=== PATIENT | female | born 1990 | race Caucasian/White ===

== ENCOUNTER → 2018-05-23 08:56 | Outpatient (CLI) | payer BC, SELFPAY ==
--- NOTE | 2018-05-23 08:58 | US_ITS ---
US transvaginal HISTORY: Evaluate IUD placement, pelvic pain ITS.REASON: US T/V- IUD Placement ORDERING PHYSICIAN: Michael Valentine MD FINDINGS: The uterus is 8 x 3 x 4.9 cm. IUD is present within the endometrial canal. Endometrial thickness is 8 mm. No uterine mass. The left ovary is 3.4 x 2.6 cm and contains multiple small follicles as well as a hypoechoic 12 x 9 mm cyst with some internal echoes and their present a small hemorrhagic cyst. The right ovary is 4 x 2 cm containing multiple small follicles. There is a small amount of cul-de-sac fluid. IMPRESSION: 1. IUD is in place. 2. Bilateral ovarian follicles with probable small 12 mm complex/hemorrhagic cyst of the left ovary. 3. Small amount of cul-de-sac fluid
== END ==
PROVIDERS: PCP Internal Medicine Adolescent Medicine; Visit Provider Nurse Practitioner Obstetrics & Gynecology
DX: Z97.5 Presence of (intrauterine) contraceptive device (principal)
CPT/HCPCS: 76830

== ENCOUNTER → 2018-08-28 09:49 | Outpatient (CLI) | payer BC, SELFPAY ==
[2018-08-28 13:59] LABS: Alanine Aminotransferase 23 U/L (12-78); Albumin Level 3.9 gm/dL (3.4-5.0); Albumin/Globulin Ratio 1.2 (1.1-1.8); Alkaline Phosphatase 83 U/L (46-116); Anion Gap 12.2 mEq/L (5-15); Aspartate Amino Transferase 9 U/L (15-37); Bilirubin,Total 0.3 mg/dL (0.2-1.0); Blood Urea Nitrogen 16 mg/dL (7-18); Calcium 9.5 mg/dL (8.5-10.1); Carbon Dioxide 31 mmol/L (21.0-32.0); Chloride 104 mmol/L (98-107); Chol/HDL Ratio 2.6 (1-3.5); Cholesterol 170 mg/dL (140-200); Creatinine,Serum 0.75 mg/dL (0.55-1.02); Estimated Glomerular Filt Rate 93 ml/min (>60); GFR (African American) 113 ML/MIN (>60); Globulin 3.2 gm/dl (1.3-3.2); Glucose 102 mg/dL (74-106); HDL Cholesterol 65 mg/dL (29-89); LDL Cholesterol 89 mg/dL (0-130); Potassium 4.2 mmoL/L (3.5-5.1); Sodium 143 mmol/L (136-145); Total Protein,Serum 7.1 gm/dL (6.4-8.2); Triglycerides 79 mg/dL (30-200); VLDL Cholesterol 16 mg/dL (0-40)
== END ==
PROVIDERS: Visit Provider Nurse Practitioner Family
DX: Z00.00 Encounter for general adult medical examination without abnormal findings (principal); G43.719 Chronic migraine without aura, intractable, without status migrainosus
CPT/HCPCS: 36415; 80053; 80061

== ENCOUNTER → 2018-09-03 10:33 | Outpatient (CLI) | payer BC, SELFPAY ==
[2018-09-03 10:47] LABS: Urine Pregnancy, HCG Qual. Negative (Negative)
== END ==
PROVIDERS: Visit Provider Surgery
DX: R10.9 Unspecified abdominal pain (principal)
CPT/HCPCS: 81025

== ENCOUNTER → 2020-06-08 16:33 | Outpatient (CLI) | payer BC, SELFPAY ==
[2020-06-08 19:14] LABS: Chloride 102 mmol/L (98-107); Potassium 4.1 mmoL/L (3.5-5.1); Sodium 138 mmol/L (136-145)
[2020-06-08 19:16] LABS: Blood Urea Nitrogen 13 mg/dl (7-17); Estimated Glomerular Filt Rate 86 ml/min (>60); GFR (African American) 104 ML/MIN (>60)
[2020-06-08 19:17] LABS: Alanine Aminotransferase 15 U/L (12-78); Albumin Level 4.4 g/dl (3.5-5.0); Albumin/Globulin Ratio 1.8 (1.1-1.8); Alkaline Phosphatase 56 U/L (38-126); Anion Gap 11.1 mEq/L (5-15); Aspartate Amino Transferase 20 U/L (14-36); Bilirubin,Total 0.4 mg/dl (0.2-1.3); Carbon Dioxide 29 mmol/L (22.0-30.0); Chol/HDL Ratio 3.1 (1-3.5); Cholesterol 179 mg/dl (140-200); Globulin 2.5 g/dL (1.3-3.2); Glucose 121 mg/dl (74-100); HDL Cholesterol 58 mg/dl (40-60); Total Protein,Serum 6.9 g/dl (6.3-8.2); Triglycerides 228 mg/dl (30-150); VLDL Cholesterol 46 mg/dL (0-40)
[2020-06-08 19:28] LABS: Direct LDL Cholesterol 91.34 mg/dL (100-129)
== END ==
PROVIDERS: Visit Provider Internal Medicine Adolescent Medicine
DX: Z00.00 Encounter for general adult medical examination without abnormal findings (principal)
CPT/HCPCS: 36415; 80053; 80061

== ENCOUNTER → 2020-08-18 11:49 | Outpatient (CLI) | payer BC, SELFPAY ==
--- NOTE | 2020-08-18 11:56 | XR_ITS ---
PROCEDURE: XR CHEST PORTABLE CLINICAL HISTORY: COVID OUT PATIENT Cough COMPARISON: No exams were available for comparison FINDINGS: The cardiomediastinal silhouette and pulmonary vascularity are within normal limits. The lungs are clear without infiltrates, suspicious nodules, or pleural effusions. No acute bony abnormalities. IMPRESSION: No acute findings. Dictated by: Jim Fregoso MD 08/18/2020 13:52 Jim Fregoso MD in [place] 08/18/2020 13:52
[2020-08-18 13:12] LABS: Chloride 99 mmol/L (98-107)
[2020-08-18 13:13] LABS: Potassium 3.3 mmoL/L (3.5-5.1); Sodium 139 mmol/L (136-145)
[2020-08-18 13:15] LABS: Alanine Aminotransferase 20 U/L (12-78); Alkaline Phosphatase 64 U/L (38-126); Aspartate Amino Transferase 27 U/L (14-36); Bilirubin,Total 0.4 mg/dl (0.2-1.3); Blood Urea Nitrogen 11 mg/dl (7-17); Carbon Dioxide 33 mmol/L (22.0-30.0); Estimated Glomerular Filt Rate 100 ml/min (>60); GFR (African American) 121 ML/MIN (>60)
[2020-08-18 13:16] LABS: Albumin Level 4.6 g/dl (3.5-5.0); Albumin/Globulin Ratio 1.5 (1.1-1.8); Basophils % 0.6 % (0.1-2.0); Calcium 10.2 mg/dl (8.4-10.2); Eosinophils # 0.1 K/mm3 (0.0-0.4); Globulin 3.1 g/dL (1.3-3.2); Glucose 83 mg/dl (74-100); Hematocrit 39.9 % (37.0-47.0); Hemoglobin 12.8 g/dL (12.2-16.2); Lymphocytes # 2.3 K/mm3 (0.7-4.5); Lymphocytes % 34.2 % (10-50); Mean Corpuscular Hemoglobin 28.8 pg (27.0-31.2); Mean Platelet Volume 7.8 fl (7.4-10.4); Monocytes # 0.3 K/mm3 (0.1-1.0); Monocytes % 4.5 % (1.7-9.3); Neutrophils % 59.7 % (37.0-80.0); Platelet Count 317 K/mm3 (142-424); Red Blood Count 4.43 M/mm3 (4.20-5.40); Red Cell Distribution Width 11.8 % (11.5-17.5); Total Protein,Serum 7.7 g/dl (6.3-8.2); White Blood Count 6.7 K/mm3 (4.8-10.8)
[2020-08-18 13:21] LABS: Anion Gap 10.3 mEq/L (5-15)
[2020-08-19 15:41] LABS: Covid-19 Nasal PCR Sendout Lex Not Detected
== END ==
PROVIDERS: PCP Internal Medicine Adolescent Medicine; Visit Provider Internal Medicine Adolescent Medicine
DX: Z03.818 Encounter for observation for suspected exposure to other biological agents ruled out (principal); J18.0 Bronchopneumonia, unspecified organism
CPT/HCPCS: 36415; 71045; 80053; 85025; U0004

== ENCOUNTER → 2021-03-04 16:18 | Outpatient (CLI) | payer BC, SELFPAY ==
[2021-03-04 16:47] LABS: Basophils % 0.4 % (0.1-2.0); Eosinophils # 0.1 K/mm3 (0.0-0.4); Eosinophils % 1.6 % (0.1-12.0); Hematocrit 37.9 % (37.0-47.0); Hemoglobin 12.7 g/dL (12.2-16.2); Lymphocytes # 2.4 K/mm3 (0.7-4.5); Mean Corpuscular HGB Conc 33.4 g/dL (31.8-35.4); Mean Corpuscular Hemoglobin 29.1 pg (27.0-31.2); Mean Corpuscular Volume 86.9 fl (81-99); Mean Platelet Volume 7.4 fl (7.4-10.4); Monocytes # 0.3 K/mm3 (0.1-1.0); Monocytes % 4.6 % (1.7-9.3); Neutrophils % 58.4 % (37.0-80.0); Platelet Count 355 K/mm3 (142-424); Red Blood Count 4.36 M/mm3 (4.20-5.40); Red Cell Distribution Width 12.2 % (11.5-17.5); White Blood Count 6.9 K/mm3 (4.8-10.8)
[2021-03-04 17:21] LABS: Erythrocyte Sedimentation Rate 16 mm/hr (0-20)
[2021-03-04 18:31] LABS: Alanine Aminotransferase 26 U/L (12-78); Albumin Level 4.6 g/dl (3.5-5.0); Albumin/Globulin Ratio 1.8 (1.1-1.8); Alkaline Phosphatase 68 U/L (38-126); Anion Gap 11.8 mEq/L (5-15); Aspartate Amino Transferase 25 U/L (14-36); Bilirubin,Total 0.5 mg/dl (0.2-1.3); Blood Urea Nitrogen 11 mg/dl (7-17); Calcium 9.5 mg/dl (8.4-10.2); Carbon Dioxide 29 mmol/L (22.0-30.0); Chloride 101 mmol/L (98-107); Estimated Glomerular Filt Rate 100 ml/min (>60); GFR (African American) 121 ML/MIN (>60); Globulin 2.5 g/dL (1.3-3.2); Glucose 90 mg/dl (74-100); Potassium 3.8 mmoL/L (3.5-5.1); Sodium 138 mmol/L (136-145); Total Protein,Serum 7.1 g/dl (6.3-8.2)
== END ==
PROVIDERS: Visit Provider Internal Medicine Adolescent Medicine
DX: G43.719 Chronic migraine without aura, intractable, without status migrainosus (principal); H54.62 Unqualified visual loss, left eye, normal vision right eye
CPT/HCPCS: 36415; 80053; 85025; 85651

== ENCOUNTER → 2021-03-05 10:39 | Outpatient (CLI) | payer BC, SELFPAY ==
--- NOTE | 2021-03-05 10:51 | MR_ITS ---
PROCEDURE INFORMATION: Exam: MR Head Without Contrast Exam date and time: 03/05/2021 10:51 AM Age: 30 years old Clinical indication: Pain; Aura effect not specified; Patient HX: PT has HX of migraine headaches that are getting worse TECHNIQUE: Imaging protocol: MR of the head without contrast. COMPARISON: No relevant prior studies available. FINDINGS: Brain: Normal. No acute infarct. No hemorrhage. No significant white matter disease. No edema. Cerebral ventricles: Normal. No ventriculomegaly. Bones/joints: Unremarkable. Paranasal sinuses: Normal as visualized. No acute sinusitis. Mastoid air cells: Normal as visualized. No mastoid effusion. Orbital cavity: Unremarkable. Soft tissues: Unremarkable. IMPRESSION: No acute findings.
== END ==
LOC: RAD 10:39
PROVIDERS: PCP Internal Medicine Adolescent Medicine; Visit Provider Internal Medicine Adolescent Medicine
DX: G43.719 Chronic migraine without aura, intractable, without status migrainosus (principal); H54.62 Unqualified visual loss, left eye, normal vision right eye
CPT/HCPCS: 70551

== ENCOUNTER → 2021-09-15 15:41 | Outpatient (CLI) | payer BC, SELFPAY | PROVIDERS: PCP Internal Medicine Adolescent Medicine; Visit Provider Nurse Practitioner | DX: U07.1 COVID-19 (principal) | CPT/HCPCS: C9803; U0003; U0005 ==

== ENCOUNTER 2024-05-15 14:19 | Outpatient (CLI) | payer BC, SELFPAY ==
--- NOTE | 2024-05-15 14:23 | XR_ITS ---
FINAL REPORT CLINICAL HISTORY: BONE CYST OF FOOT FINDINGS: LEFT FOOT Three views of the left foot demonstrate no acute fracture or dislocation. The visualized joint spaces are normally aligned. There are mild degenerative changes. Small plantar calcaneal spurs noted. The soft tissues are unremarkable. IMPRESSION: No acute bony abnormality. Reviewed, Interpreted and Dictated by Lorenzo Ortega III, MD Transcribed by Kelly Montes Authenticated and [facility]
== END 2024-05-15 23:59 | disposition home or self-care (01) ==
LOC: RAD 14:20
PROVIDERS: PCP Internal Medicine Adolescent Medicine; Visit Provider Internal Medicine Adolescent Medicine
DX: M85.672 Other cyst of bone, left ankle and foot (principal)
CPT/HCPCS: 73630

== ENCOUNTER 2024-07-02 08:13 | Emergency (ER) | payer BC, SELFPAY ==
[2024-07-02] VITALS (10 sets, daily range): BP systolic 124–158; BP diastolic 76–116; PULSE 78–104; RESP 13–18; TEMP 36.8; O2SAT 97–100; BMI 29.2
--- NOTE | 2024-07-02 08:19 | XR_ITS ---
FINAL REPORT CLINICAL HISTORY: R hand injury, punched wall FINDINGS: Right hand Three views were obtained. There is a mildly displaced and angulated boxer's fracture of the 5th metacarpal. The joint spaces appear normal. No soft tissue abnormality is identified. IMPRESSION: Fracture as above. Reviewed, Interpreted and Dictated by Karime Long MD Transcribed by Cathie Correia Authenticated and [facility]
--- NOTE | 2024-07-02 08:20 | ED_ITS ---
Discharge Plan Disposition Patient Disposition: Home, Self-Care Prescriptions Prescriptions: New oxycodone 5 mg tablet 5 mg PO Q6H PRN (Reason: pain) Qty: 12 0RF No Action levonorgestrel 1 EACH intrauterine device 1 each IY ONCE Referrals Follow up/Referrals: Max Chew DO [Staff Physician] - 07/03/24 10:45 am Chris Polanco MD [Primary Care Provider] - See instructions Activity Restrictions/Add. Instructions Additional Instructions/Restrictions: Take Tylenol 1000 mg every 6 hours and ibuprofen 400 mg every 6 hours for pain. Take oxycodone as needed for breakthrough pain. Do not get splint wet. Please return emerged part with any new, concerning, worsening symptoms. Follow-up with orthopedic surgery as above. Clinical Impressions Clinical Impression: Boxer's fracture Qualifiers: Encounter type: initial encounter Fracture type: closed Qualified Code(s): S62.339A - Displaced fracture of neck of unspecified metacarpal bone, initial encounter for closed fracture Instructions Patient Instructions: DI for Boxer's Fracture, DI for Moderate Sedation Print Language Print Language: [place]arag[place] Discharge ED Provider: Andrews Ramsey General Adult HPI General Chief complaint: Extremity Injury, Upper Stated complaint: AO-pain and swelling R hand Time Seen by Provider: 07/02/24 08:16 Mode of Arrival: Ambulatory Source of Information: Patient Limitations: No Limitations History of Present Illness HPI narrative: This is an otherwise healthy 33-year-old female who presents with right hand injury. States that she got frustrated at work and punched the wall. Reports pain, tenderness, and swelling over the right fifth MCP. No other injuries. No medications taken prior to arrival. Related Data Home Medications ?Medication ?Instructions ?Recorded ?Confirmed levonorgestrel 21 mcg/24 hr (up to 1 each IY ONCE control 02/15/18 06/23/24 8 years) 52 mg intrauterine device Previous Rx's ?Medication ?Instructions ?Recorded oxycodone 5 mg tablet 5 mg PO Q6H PRN pain #12 tabs 07/02/24 Allergies Allergy/AdvReac Type Severity Reaction Status Date / Time No Known Allergies Allergy Verified 06/23/24 09:12 [facility] Disclaimer: The information contained in this section may have been updated after the patient was seen, as this information can be updated by other users. Medical History No significant past medical history Surgical History Hx of tonsillectomy Family History Other Cancer Social History Smoking Status: Never smoker alcohol intake: current alcohol intake frequency: holidays/special occasions only substance use type: denies use current occupational status: employed Travel in the last 8 weeks: None housing: house current occupation: [employer] current occupational exposures/hazards: No caffeine: No ROS Obtained: Yes All systems reviewed & no additional complaints except as documented Physical Exam General General appearance: alert and in no apparent distress Eye Eye exam: Present normal appearance, PERRL and EOMI Respiratory Respiratory exam: Present normal lung sounds bilaterally; Absent respiratory distress Cardiovascular Cardiovascular exam: Present regular rate and normal rhythm Abdominal Exam Abdominal exam: Present soft and distention; Absent tenderness, guarding or rebound Expanded Upper Extremity Exam Right: Hand exam: Present other (Tenderness and swelling of her fifth MCP. Neurovascularly intact distally.) Neurological Exam Neurological exam: Present alert and oriented X3 Skin Skin exam: Present warm and dry Medical Decision Making Medical Records Medical records reviewed: Yes I reviewed the patient's medical records. Screening: Per USPSTF and CDC recommendations, given the prevalence of disease in our region, it is our hospital?s policy to screen for HIV and viral Hepatitis for all patients aged 18 and over and those with ongoing risk factors. Shawn Inquiry Pt receiving controlled substance: No Vital Signs: 07/02/24 08:20 07/02/24 08:53 07/02/24 09:04 Temperature 98.2 F Temperature Source Oral Pulse Rate Pulse Rate [Left Brachial] 100 H Respiratory Rate 18 16 Blood Pressure 143/98 H 158/116 H Blood Pressure [Left Arm] 124/79 Blood Pressure Mean 130 Blood Pressure Mean [Left Arm] 94 Blood Pressure Source Blood Pressure Source [Left Arm] Automatic Cuff Blood Pressure Position Blood Pressure Position [Left Arm] Sitting 02 Sat by Pulse Oximetry 100 Oxygen Delivery Method Room Air 07/02/24 09:05 07/02/24 09:09 07/02/24 09:14 Temperature Temperature Source Pulse Rate 104 H Pulse Rate [Left Brachial] 95 H 95 H Respiratory Rate 16 13 16 Blood Pressure 154/99 H Blood Pressure [Left Arm] 156/116 H 154/99 H Blood Pressure Mean Blood Pressure Mean [Left Arm] 129 117 Blood Pressure Source Blood Pressure Source [Left Arm] Automatic Cuff Automatic Cuff Blood Pressure Position Blood Pressure Position [Left Arm] Supine Supine 02 Sat by Pulse Oximetry 100 99 98 Oxygen Delivery Method Room Air Room Air 07/02/24 09:15 07/02/24 09:15 07/02/24 09:20 Temperature Temperature Source Pulse Rate 84 86 87 Pulse Rate [Left Brachial] Respiratory Rate 16 14 14 Blood Pressure 151/94 H 151/94 H 140/91 H Blood Pressure [Left Arm] Blood Pressure Mean Blood Pressure Mean [Left Arm] Blood Pressure Source Automatic Cuff Blood Pressure Source [Left Arm] Blood Pressure Position Supine Blood Pressure Position [Left Arm] 02 Sat by Pulse Oximetry 97 99 100 Oxygen Delivery Method Room Air 07/02/24 09:25 Temperature Temperature Source Pulse Rate 99 H Pulse Rate [Left Brachial] Respiratory Rate 16 Blood Pressure 149/96 H Blood Pressure [Left Arm] Blood Pressure Mean Blood Pressure Mean [Left Arm] Blood Pressure Source Blood Pressure Source [Left Arm] Blood Pressure Position Blood Pressure Position [Left Arm] 02 Sat by Pulse Oximetry 99 Oxygen Delivery Method Orders (Tests/Meds): ED MEDICATIONS Generic Name Dose Route Start Last Admin Trade Name Freq PRN Reason Stop Dose Admin Oxycodone HCl 5 mg 07/02/24 08:19 07/02/24 08:24 Oxycodone 5mg Immediate Release Tablet PO 08/01/24 08:18 5 mg Q4HP PRN Administration Severe Pain (7-10) Discontinued Medications Generic Name Dose Route Start Last Admin Trade Name Freq PRN Reason Stop Dose Admin Acetaminophen 1,000 mg 07/02/24 08:19 07/02/24 08:24 Acetaminophen 500mg Tab PO 07/02/24 08:20 1,000 mg ONCE ONE Administration Ibuprofen 400 mg 07/02/24 08:19 07/02/24 08:25 Ibuprofen 400 Mg Tablet PO 07/02/24 08:20 400 mg ONCE ONE Administration Ketamine HCl 25 mg 07/02/24 08:43 07/02/24 09:02 Ketamine 50mg/1ml Syringe IV 07/02/24 08:44 25 mg ONCE ONE Administration Ondansetron HCl 4 mg 07/02/24 09:05 07/02/24 09:06 Ondansetron 4mg/2ml Vial IV 07/02/24 09:06 4 mg ONCE ONE Administration ORDERS Category Date Time Status Hand XR right minimum 3 views [XR hand RT min 3V] Stat Exams 07/02/24 08:19 Taken XR hand RT 2V Stat Exams 07/02/24 09:02 Taken Medical Decision Narrative: In summary, this otherwise healthy 33-year-old female presents to the emergency department today with right hand injury. On initial evaluation patient is afebrile, hemodynamically stable, nontoxic-appearing. Differential diagnosis includes but is not limited to boxer's fracture, dislocation, soft tissue injury. Based on these concerns, I ordered right hand x-ray. Patient received oxycodone, Tylenol, ibuprofen for treatment. XR personally interpreted demonstrates boxer's fracture with volar angulation. Patient was administered pain dose ketamine and fracture was reduced by me at bedside. Ulnar gutter splint placed. Patient given follow-up with orthopedic surgery tomorrow at 10:45 AM. On reassessment in stable condition with improvement in symptoms. Appropriate for discharge with outpatient management. Prescribed oxycodone for breakthrough pain. Instructed on treatment with Tylenol/ibuprofen otherwise. Return pre cautions given.. Procedures Orthopedic Fracture Reduction Fracture #1: Time Out Performed: Yes Side: right Fracture Reduction Location: metacarpal Analgesia: other (Pain dose ketamine) Technique: direct manipulation Post Reduction X-rays Demonstrate: anatomical reduction Post-reduction neuro exam: no change Post-reduction vascular exam: no change Splint Applied: Yes Patient Tolerated Procedure: well Orthopedic Splinting/Casting Injury #1: Side: right Upper Extremity Injury Location: hand Upper Extremity Immobilizer: ulnar gutter Post Cast/Splinting Neuro Status: no change Post Cast/Splinting Vasc Status: no change Critical Care Critical Care Time Critical Care Time: No
[2024-07-02] MEDS: ACETAMINOPHEN 500MG TAB 1000 MG PO (08:24)
[2024-07-02] MEDS: OXYCODONE 5MG IMMEDIATE RELEASE TABLET 5 MG PO (08:24)
[2024-07-02] MEDS: IBUPROFEN 400 MG TABLET PO (08:25)
[2024-07-02] MEDS: KETAMINE 50MG/1ML SYRINGE 25 MG IV (09:02)
--- NOTE | 2024-07-02 09:02 | XR_ITS ---
FINAL REPORT CLINICAL HISTORY: post-reduction COMPARISON: 07/02/2024 FINDINGS: Right hand Two views were obtained. There is minimal improvement in the angulation of the boxer's fracture seen on the prior exam. No new abnormality identified. IMPRESSION: Minimal improvement in the angulation of the boxer's fracture. Reviewed, Interpreted and Dictated by Karime Long MD Transcribed by Cathie Correia Authenticated and [facility]
[2024-07-02] MEDS: ONDANSETRON 4MG/2ML VIAL 4 MG IV (09:06)
== END 2024-07-02 09:57 | disposition home or self-care (01) ==
PROVIDERS: Emergency Provider Student in an Organized Health Care Education/Training Program; PCP Internal Medicine Adolescent Medicine
DX: S62.326A Displaced fracture of shaft of fifth metacarpal bone, right hand, initial encounter for closed fracture (principal); M79.641 Pain in right hand; W22.8XXA Striking against or struck by other objects, initial encounter
CPT/HCPCS: 29125; 73120; 73130; 96374; 96375; 99284; J2405

== ENCOUNTER 2024-07-08 15:23 | Outpatient (CLI) | payer BC, SELFPAY ==
--- NOTE | 2024-07-08 15:24 | MR_ITS ---
FINAL REPORT CLINICAL HISTORY: Left Dorsal Lateral Foot Soft Tissue Mass cyst on lateral aspect of ankle 16 ml COMPARISON: None FINDINGS: MRI ANKLE WITH AND WITHOUT CONTRAST: Multiplanar MR imaging of the left ankle was performed with and without contrast. The bony structures are intact without evidence of fracture, bone bruise or marrow edema. No osteochondral lesion is identified. A marker was placed over the region of interest where a mass is present. The area correlates to a small ossific protuberance from the anterolateral aspect of the calcaneus, best seen on image #22 of series 4, and image #36 of series 7. There is no separate soft tissue mass in this region. The ligaments are intact without evidence of injury. The flexor and extensor tendons are intact. The posterior plantar aponeurosis is intact. No significant joint effusion is seen. The musculature is intact. There is no evidence of soft tissue mass or cyst. IMPRESSION: Region of interest corresponds to a small ossific protuberance from the anterolateral aspect of the calcaneus as described above. There is no separate soft tissue mass in this region. Reviewed, Interpreted and Dictated by Hetah Nava MD Transcribed by Nikole Benavides Authenticated and [facility]
[2024-07-08] MEDS: SODIUM CHLORIDE 0.9% 10ML SYR (RAD ONLY) 10 ML IV (16:31)
[2024-07-08] MEDS: GADOTERIDOL INJ 20ML SYRINGE 16 ML IV (16:32)
== END 2024-07-08 23:59 | disposition home or self-care (01) ==
LOC: RAD 15:23
PROVIDERS: PCP Internal Medicine Adolescent Medicine; Visit Provider Podiatrist
DX: M67.472 Ganglion, left ankle and foot (principal)
CPT/HCPCS: 73723; A9576

== ENCOUNTER 2024-07-15 09:10 | Outpatient (CLI) | payer BC, SELFPAY ==
--- NOTE | 2024-07-15 09:14 | XR_ITS ---
FINAL REPORT CLINICAL HISTORY: Boxer's fracture, follow-up. COMPARISON: July 02, 2024. FINDINGS: RIGHT HAND Three views were performed. Splint obscures detail. Again noted is a fracture of the distal fifth metacarpal. There is palmar angulation of the distal fracture fragment. No significant callus formation is identified. IMPRESSION: Distal fifth metacarpal fracture is again noted with palmar angulation of the distal fracture fragment. There is no significant callus formation identified. Reviewed, Interpreted and Dictated by Lorenzo Ortega III, MD Transcribed by Giselle Cabrera PA-C Authenticated and . [facility]
== END 2024-07-15 23:59 | disposition home or self-care (01) ==
LOC: RAD 09:12
PROVIDERS: PCP Internal Medicine Adolescent Medicine; Visit Provider Orthopaedic Surgery
DX: M79.641 Pain in right hand (principal); S62.339A Displaced fracture of neck of unspecified metacarpal bone, initial encounter for closed fracture
CPT/HCPCS: 73130

== ENCOUNTER 2024-07-18 10:35 | Outpatient (CLI) | payer BC, SELFPAY ==
[2024-07-18 11:01] VITALS: BMI 28.2
[2024-07-18 11:45] LABS: Chloride 102 mmol/L (98-107)
[2024-07-18 11:46] LABS: Potassium 4.4 mmoL/L (3.5-5.1); Sodium 137 mmol/L (136-145)
[2024-07-18 11:49] LABS: Anion Gap 9.4 mEq/L (5-15); Blood Urea Nitrogen 10 mg/dl (7-17); Calcium 9.9 mg/dl (8.4-10.2); Carbon Dioxide 30 mmol/L (22.0-30.0); Creatinine Clearance Estimated 128 mL/min (50-200); Estimated Glomerular Filt Rate 84 ml/min (>60); GFR (African American) 101 ML/MIN (>60); Glucose 89 mg/dl (74-100)
[2024-07-18 11:51] LABS: Basophils # 0.1 K/mm3 (0-0.2); Basophils % 0.9 % (0.1-2.0); Eosinophils # 0.1 K/mm3 (0.0-0.4); Hematocrit 38.5 % (37.0-47.0); Hemoglobin 13.1 g/dL (12.2-16.2); Lymphocytes # 2.6 K/mm3 (0.7-4.5); Lymphocytes % 36.2 % (10-50); Mean Corpuscular HGB Conc 34.1 g/dL (31.8-35.4); Mean Corpuscular Hemoglobin 30.5 pg (27.0-31.2); Mean Corpuscular Volume 89.5 fl (81-99); Mean Platelet Volume 7.8 fl (7.4-10.4); Monocytes # 0.3 K/mm3 (0.1-1.0); Monocytes % 4.7 % (1.7-9.3); Neutrophils # 4.1 K/mm3 (1.8-7.8); Neutrophils % 57.3 % (37.0-80.0); Platelet Count 311 K/mm3 (142-424); Red Cell Distribution Width 12.6 % (11.5-17.5); White Blood Count 7.2 K/mm3 (4.8-10.8)
[2024-07-18 11:52] LABS: HCG Qualitative, Serum Negative (Negative)
== END 2024-07-18 23:59 | disposition home or self-care (01) ==
PROVIDERS: Nurse Anesthetist, Certified Registered; PCP Internal Medicine Adolescent Medicine; Visit Provider Orthopaedic Surgery
DX: Z01.812 Encounter for preprocedural laboratory examination (principal)
CPT/HCPCS: 80048; 84703; 85025

== ENCOUNTER 2024-07-21 09:11 | Day surgery (SDC) | payer BC, SELFPAY ==
[2024-07-18 11:00] VITALS: BMI 28.2
[2024-07-21] VITALS (9 sets, daily range): BP systolic 124–167; BP diastolic 73–91; PULSE 72–102; RESP 18; TEMP 35.8–36.9; O2SAT 94–100
--- NOTE | 2024-07-21 09:33 | EXP.ANES.CKL ---
[facility] Disclaimer: The information contained in this section may have been updated after the patient was seen, as this information can be updated by other users. Medical History (Updated 07/21/24 @ 09:28 by Jennifer Fay RN) History of lipoma No significant past medical history Surgical History Hx of tonsillectomy Family History Other Cancer Family history of COPD (chronic obstructive pulmonary disease) Family history of heart disease Social History (Updated 07/21/24 @ 09:28 by Jennifer Fay RN) Smoking Status: Never smoker alcohol intake: current alcohol intake frequency: holidays/special occasions only substance use type: denies use current occupational status: employed Travel in the last 8 weeks: None housing: house current occupation: [employer] current occupational exposures/hazards: No caffeine: No [facility] Anesthesia Checklist Patient Identification Patient Identification: Arm Band, Family and Verbal (Name & ) Structural Data Admitted From: Home Planned Operative Procedure/s: ORIF RT. 5th metacarpal Fx Consent for Planned Operative Procedure(s) Verified: Yes Verified Documents: Surgical Consent and History and Physical NPO Status Verified Time NPO: 23:00 Chart Verification Results Verified: CBC, BMP and Chest Xray Additional verifications Patient : No Anesthesia Reactions: No Hx Blood Transfusions: No Blood Transfusion Reaction: No Cardiovascular Assessment Heart Sounds: S1 & S2 Pulse Rhythm: Irregular Peripheral Edema: No Airway Assessment Mallampati Score:: Class II C-Spine Mobility Assessed: Yes (FROM) TMJ Mobility Assessed: Yes Dentition: Good Dentition (Nothing loose per pt.) Neurological Assessment Level of Consciousness: Awake, Alert, Appropriate and Follows Commands Hx Seizures: No Numbness or tingling in extremities: No Anesthesia Plan Anesthesia Risk discussed: Yes Anesthesia Plan: Verified ASA Class: II Anesthesia Type: General w/block
[2024-07-21] MEDS: LACTATED RINGERS 1000ML 1,000 ML 100 ML IV (09:36)
[2024-07-21] MEDS: CEFAZOLIN SODIUM 2 GM in 0.9 % SODIUM CHLORIDE 100 ML IV (11:07)
[2024-07-21] MEDS: BUPIVACAINE 0.5% 30ML VIAL 150 MG (11:28)
--- NOTE | 2024-07-21 12:58 | P.PNANES_ITS ---
[facility] Anesthesia Record Part I Anesthesia Record I Intake, IV Amount: 400 Hydration: Adequate Estimated blood loss (mL): 10 Urine output (mL): 0 Blood Products used (#): none Blood Pressure: 167/91 SaO2: 95 Pulse Rate: 102 Airway Patency: Patent Respiratory Rate: 18 Temperature: 96.5 F Patient is:: Awake (Talking. Crying.) and Stable Stable to PACU at:: 13:00
[2024-07-21] MEDS: MEPERIDINE 25MG/ML 1ML SYRINGE 25 MG IV (13:05)
--- NOTE | 2024-07-21 13:08 | XR_ITS ---
FINAL REPORT CLINICAL HISTORY: R 5TH METACARPAL FX ORIF 0.6 shefali 0.69 mGy 0.00 m gy/shefali FINDINGS: A single fluoroscopic spot film was obtained for ORIF of the fifth metacarpal. 0.6 seconds of fluoroscopy time was reported, 0.69 mGy. IMPRESSION: Fluoroscopy as above. Reviewed, Interpreted and Dictated by Heath Nava MD Transcribed by Kelly Montes Authenticated and . [facility]
--- NOTE | 2024-07-21 13:41 | EXP.OP.NOTE ---
Date of procedure: 07/21/24 Pre-op Diagnosis:: Displaced right fifth metacarpal neck fracture Post-op Diagnosis:: Same Procedure performed:: Open reduction internal fixation right fifth metacarpal neck fracture Surgeon:: Max Chew DO Sales And Service Specialist(s):: Louis IRIZARRY [employer] CONSULTANT:: Tirso Cohen Anesthesia: GETA Estimated blood loss (mL): 0 Clinical Note:: 33-year-old female punched a wall suffered a flexed fracture fifth metacarpal neck Operative findings:: See dictation Operative note:: Patient is identified preoperatively. Right hand marked with yes and my initials. Transferred operative suite. Placed upon operating bed. General anesthesia was administered and airway secured. Right upper extremities and prepped and draped normal sterile fashion. Once prepped and draped final operative timeout performed to identify proper patient procedure and extremity. Everyone involved the case agreed. There is no counter indications to beginning. She did receive preoperative antibiotics. X-ray was brought into identify fracture of the fifth metacarpal neck closed reduction maneuver was performed but fracture remained in a flexed position. Marking pen was then used to henry plan incision over the dorsal aspect of the fifth metacarpal neck. Esmarch was used to exsanguinate the extremity pneumatic tourniquet inflated to 250 mmHg. Skin knife is used to incise the skin careful dissection was taken down to the fifth metacarpal fracture. Within the fracture she had split the extensor tendon and it was incarcerated within the fracture site this was removed fracture site was clean reduction was performed with flexion of the most proximal aspect to help limit nearly with my hand x-ray was brought into identify the fracture pattern at that time one 2.0 mm lag screw was placed through the fracture which gave good alignment from a EP standpoint 2 additional lag screws were placed across the fracture site for proper alignment in both planes and stable fixation of the metacarpal neck fracture. Irrigation wound performed deep layers closed with Vicryl stitch skin closed with nylon stitch sterile dressing placed and a ulnar gutter splint was placed. Patient waken from anesthesia taken recovery stable condition Condition: stable Disposition: PACU Complications:: None apparent
[2024-07-22 07:28] VITALS: BP 154/86; PULSE 85; RESP 18; TEMP 36.1; O2SAT 96
--- NOTE | 2024-07-22 07:28 | P.PNANES_ITS ---
[facility] Anesthesia Record Part II Anesthesia Record Part II Discharge Time: 13:25 Destination: Surgical Day Care (OP Surgery) PACU nurse assessment reviewed?: Yes Patient Condition:: Good Anesthesia Complications:: None Swallowing reflex intact?: Yes Airway Patency: Patent Cyanosis?: No Blood Pressure: 154/86 SaO2: 96 Respiratory Rate: 18 Pulse Rate: 85 Temperature: 97 F Mental Status: Alert & Oriented Pain level:: 0 Nausea and/or vomitting:: None Intake, IV Amount: 0 Hydration: Adequate
== END 2024-07-21 13:56 | disposition home or self-care (01) ==
PROVIDERS: PCP Internal Medicine Adolescent Medicine; Visit Provider Orthopaedic Surgery
PROC: (CPT 26615; principal; 2024-07-21 10:55)
DX: S62.336A Displaced fracture of neck of fifth metacarpal bone, right hand, initial encounter for closed fracture (principal)
CPT/HCPCS: 26615; 73130; 76000; 96374; C1713; C9144; J0690; J1100; J2175; J2250; J2405; J3010; J7120

== ENCOUNTER 2024-08-05 08:20 | Outpatient (CLI) | payer BC, SELFPAY ==
--- NOTE | 2024-08-05 08:22 | XR_ITS ---
PROCEDURE INFORMATION: Exam: XR Right Hand Exam date and time: 08/05/2024 8:30 AM Age: 34 years old Clinical indication: Pain; Hand; Right; Prior surgery; Surgery date: <1 month; Surgery type: Orif; Additional info: Right hand boxer FX TECHNIQUE: Imaging protocol: Radiologic exam of the right hand. Views: 3 or more views. COMPARISON: SD XR HAND RT MIN 3V 07/21/2024 1:08 PM FINDINGS: Bones/joints: Multiple screws in the distal aspect of the 5th metacarpal. The screws cross the fracture in the neck of the 5th metacarpal. The fracture fragments are in good alignment.. Plaster splint along the ulnar aspect of the forearm and hand. Soft tissues: Soft tissue swelling over the dorsum of the hand IMPRESSION: 1. Multiple screws in the distal aspect of the 5th metacarpal. The screws cross the fracture in the neck of the 5th metacarpal. The fracture fragments are in good alignment.. 2. Plaster splint along the ulnar aspect of the forearm and hand.
== END 2024-08-05 23:59 | disposition home or self-care (01) ==
LOC: RAD 08:20
PROVIDERS: PCP Internal Medicine Adolescent Medicine; Visit Provider Orthopaedic Surgery
DX: S62.336A Displaced fracture of neck of fifth metacarpal bone, right hand, initial encounter for closed fracture (principal)
CPT/HCPCS: 73130

== ENCOUNTER 2024-08-26 08:07 | Outpatient (CLI) | payer BC, SELFPAY ==
--- NOTE | 2024-08-26 08:09 | XR_ITS ---
PROCEDURE INFORMATION: Exam: XR Right Hand Exam date and time: 08/26/2024 8:10 AM Age: 34 years old Clinical indication: Pain; Hand; Right; Additional info: Right boxer FX TECHNIQUE: Imaging protocol: Radiologic exam of the right hand. Views: 3 or more views. COMPARISON: CR XR HAND RT MIN 3V 08/05/2024 8:30 AM FINDINGS: Bones/joints: Postsurgical change of the distal 5th metacarpal bone without significant interval change from prior comparison. Soft tissues: Normal. Other findings: Overlying casting material seen. IMPRESSION: Unchanged postsurgical appearance of the distal 5th metacarpal bone.
== END 2024-08-26 23:59 | disposition home or self-care (01) ==
LOC: RAD 08:08
PROVIDERS: PCP Internal Medicine Adolescent Medicine; Visit Provider Orthopaedic Surgery
DX: S62.336A Displaced fracture of neck of fifth metacarpal bone, right hand, initial encounter for closed fracture (principal)
CPT/HCPCS: 73130

== ENCOUNTER 2024-09-16 08:16 | Outpatient (CLI) | payer BC, SELFPAY ==
--- NOTE | 2024-09-16 08:18 | XR_ITS ---
FINAL REPORT CLINICAL HISTORY: flaquita motley COMPARISON: 08/26/2024 FINDINGS: Right hand Three views were obtained. Splint is identified. There are postoperative changes of the distal fifth metacarpal. Findings are stable since previous. IMPRESSION: Stable exam. Reviewed, Interpreted and Dictated by Lorenzo Ortega III, MD Transcribed by Cathie Correia Authenticated and [facility]
== END 2024-09-16 23:59 | disposition home or self-care (01) ==
LOC: RAD 08:16
PROVIDERS: PCP Internal Medicine Adolescent Medicine; Visit Provider Orthopaedic Surgery
DX: S62.336A Displaced fracture of neck of fifth metacarpal bone, right hand, initial encounter for closed fracture (principal)
CPT/HCPCS: 73130

== ENCOUNTER 2024-10-06 10:00 | Outpatient (RCR) | payer BC, SELFPAY ==
--- NOTE | 2024-09-19 11:38 | HMH.OTOPEV ---
OT Inpatient Evaluation Rehab OT Outpatient Eval Start: 09/19/24 11:20 Freq: Status: Active Protocol: Document 09/19/24 11:22 KEKE (Rec: 09/19/24 11:38 [id number] E-signed By Thania vEans, OT Outpatient Therapy Subjective History Subjective History Pt is a 34 year old female who reports to therapy for initial evaluation to right small finger. Pt initially injured hand on July 02 when punching a wall resulting in a boxer's fracture; Displaced right fifth metacarpal neck fracture . Pt required an open reduction internal fixation right fifth metacarpal neck fracture on July 21. She was recently taken out of her ulnar gutter splint this past Sunday. Pt has significant stiffness at right small MP finger. Pt is also right hand dominant and her right hand dessert cup machine feeder strength is declined. Pt will continue to be seen twice a week in order to address all deficits. Short term goals: 1. Pt will increase right small finger MP flexion to 60 degrees, PIP flexion to 80 degrees, and DIP flexion to 60 degrees in order to complete daily fine motor tasks such as typing, writing, and buttoning independently ~50% of the time. 2. Pt will increase strength to 3+/5 throughout right small finger in order to improve grasp and in hand manipulation to complete heavier household tasks (laundry, mopping, vacuuming) independently ~50% of the time. 3. Pt will verbalize decreased pain levels at worst in R small finger to a 2/10 in order to complete daily ADLs independently ~50% of the time. 4. Pt will demonstrate improved endurance by completing right hand exercises for ~10 minutes prior to rest break in order to increase her tolerance for daily work activities. 5. Pt will demonstrate independence with HEP of AAROM exercises to increase overall functional use of Right small finger in daily activities ~ 75% of the time. 6. Pt will improve right hand dessert cup machine feeder strength to 45 lbs in order to be able to open jars/ containers independently ~50% of the time. [facility] goals: Short term goals: 1. Pt will increase right small finger MP flexion to 80 degrees, PIP flexion to 100 degrees, and DIP flexion to 80 degrees in order to complete daily fine motor tasks such as typing, writing, and buttoning independently ~75% of the time. 2. Pt will increase strength to 4-/5 throughout right small finger in order to improve grasp and in hand manipulation to complete heavier household tasks (laundry, mopping, vacuuming) independently ~75% of the time. 3. Pt will verbalize decreased pain levels at worst in R small finger to a 1/10 in order to complete daily ADLs independently ~75% of the time. 4. Pt will demonstrate improved endurance by completing right hand exercises for ~20 minutes prior to rest break in order to increase her tolerance for daily work activities. 5. Pt will demonstrate independence with HEP of AAROM exercises to increase overall functional use of Right small finger in daily activities ~ 95% of the time. 6. Pt will improve right hand dessert cup machine feeder strength to 55 lbs in order to be able to open jars/ containers independently ~50% of the time. New diagnosis of cancer in past 12 No months? Chief Complaint Pain,Stiff,Weakness,Decreased Ecommerce Manager Strength Symptom Type Ache,Throb,Dull Symptoms Relieved By Rest/Positioning Symptoms Aggravated By Physical Activity,Lifting Prior Functional Limitations None Current Functional Limitations Lifting,Housework,Dressing, Desk Work/Reading,Sleeping, Recreation Activity Symptom Description Intermittent,Activity Dependent Level of pain today (0-10) 0 Pain scale - at its best (0-10) 0 Pain scale - at its worst (0-10) 3 Wrist/Hand Eval Finger Range of Motion Right Little Finger Finger Metacarpophalangeal Flexion 30 degrees Active Range of Motion (degrees) Finger Metacarpophalangeal Extension 0 degrees Active Range of Motion (degrees) Finger Proximal Interphalangeal Flexion 60 degrees Active Range (degrees) Finger Proximal Interphalangeal 0 degrees Extension Active Range (degrees) Finger Distal Interphalangeal Flexion 40 degrees Active Range of Motion (degrees) Finger Distal Interphalangeal Extension 0 degrees Active Range Motion (degrees) Hand/Finger Manual Muscle testing Finger Flexion Strength Grade 3- Fair- Finger Extension Strength Grade 3- Fair- Finger Abduction Strength Grade 3- Fair- Finger Adduction Strength Grade 3- Fair- Ecommerce Manager/Pinch Strength Right Ecommerce Manager Strength Measurement (lbs) 35 Left Ecommerce Manager Strength Measurement (lbs) 65 QuickDASH Activities Please rate your ability to do the following activities in the last week by selecting the number below the appropriate response. 1. Open a tight or new jar. Mild difficulty 2. Do heavy patternmaker grader (e.g., wash No difficulty petersen, floors). 3. Carry a shopping bag or briefcase. No difficulty 4. Wash your back. No difficulty 5. Use a knife to cut food. Mild difficulty 6. Recreational activities in which you Mild difficulty take some force or impact through your arm, shoulder, or hand (e.g., golf, hammering, tennis, etc.). 7. During the past week, to what extent Slightly has your arm, shoulder or hand problem interfered with your normal social activities with family, friends, neighbors or groups? 8. During the past week, were you Slightly limited limited in your work or other regular daily activites as a result of your arm, shoulder or hand problem? 9. Arm, shoulder or hand pain. Mild 10. Tingling (pins and needles) in your None arm, shoulder or hand. 11. During the past week, how much No difficulty difficulty have you had sleeping because of the pain in your arm, shoulder or hand? Quick DASH 17 OT Outpatient Assessment Impairments Problems/Impairments Palpation Tenderness,Impaired Range of Motion,Impaired Strength,Impaired Endurance, Impaired Lifting,Impaired Dressing,Impaired Shower/ Bathing,Impaired Household Care,Impaired Recreational Activities,Impaired Work Activities,Subjective C/O Pain Prognosis Rehab Potential Good Clinical Impression Consistent with Diagnosis Yes Short Term Goals Number of Weeks 3 see history for details Intermediate Goals Number of Weeks 6 see history for details Outpatient Therapy Plan of Care Treatment Plan May Include Therapeutic Exercise Including Home Yes Exercise Program Manual Therapy Techniques Yes Neuromuscular Re-education Yes Therapeutic Activities to Return to Yes Previous Functional/Work Level ADL/Self Care Education Yes Dry Needling Yes Thermal Modalities Yes Electrical Stimulation Yes Ultrasound/Phonophoresis Yes Iontophoresis Yes Parrafin Yes Orthotics/Bracing/Splinting Yes Massage Yes Eval/Re-Eval Yes Frequency Times per week 2 Duration Number of Weeks 6 Addendums This patient is a candidate for social No or vocational rehab? Patient/Guardian verbally acknowledges Yes understanding of treatment program and consents to further treatment? Patient/Guardian verbally acknowledges Yes understanding of diagnosis, prognosis and goals for treatment? Eval Complexity OT Charge 49288 - Moderate Complexity Shoulder/Elbow Eval Shoulder Objective Measurements Elbow Objective Measurements PHYSICIAN CERTIFICATION: I certify the specified therapy services for Vandana Rosas May are required, authorized, and reviewed every 30 days.
== END 2024-10-06 23:59 | disposition home or self-care (01) ==
LOC: OT 10:00
PROVIDERS: PCP Internal Medicine Adolescent Medicine; Visit Provider Orthopaedic Surgery
DX: M79.644 Pain in right finger(s) (principal); S62.336A Displaced fracture of neck of fifth metacarpal bone, right hand, initial encounter for closed fracture
CPT/HCPCS: 97014; 97035; 97110; 97140; 97166; G0283

== ENCOUNTER 2024-10-24 15:00 | Outpatient (RCR) | payer BC, SELFPAY ==
--- NOTE | 2024-10-22 07:58 | HMH.RHREAS ---
Rehab Reassessment Rehab OP Re-assessment Start: 10/10/24 14:59 Freq: Status: Active Protocol: Document 10/21/24 15:04 RMKODYHALL (Rec: 10/22/24 07:57 RMARSHALL [id number]) E-signed By Thania Evans OT Rehab Re-assessment Subjective Subjective I think it is moving much better. Objective Objective Notes Pt continues to be seen twice a week in order to address right small finger deficits. Each session pt receives soft tissue/scar massage and PROM manual stretching to right small finger at all joints in flexion and extension (MP, PIP , and DIP). Pt also engages in AROM, AAROM, and strengthening exercises to right hand and small finger. Modalities are provided in order to decrease pain/ inflammation. Assessment Progress Assessment Progressing as Expected Assessment Notes Pt is very consistent about attending therapy session. Pt demonstrates improvement with overall AROM and lamp decorator strength of right small finger /hand. Pt is to return to ortho on 10/28/24 for re- evaluation. Pt is also very consistent with completing HEP with right hand and small finger. Current AROM R small finger MP flex: 75 degrees PIP flex: 95 degrees DIP flex: 85 degrees R hand lamp decorator strength: 50 lbs Patient goals met Short term goals: 1. Pt will increase right small finger MP flexion to 60 degrees, PIP flexion to 80 degrees, and DIP flexion to 60 degrees in order to complete daily fine motor tasks such as typing, writing, and buttoning independently ~50% of the time. 2. Pt will increase strength to 3+/5 throughout right small finger in order to improve grasp and in hand manipulation to complete heavier household tasks (laundry, mopping, vacuuming) independently ~50% of the time. 3. Pt will verbalize decreased pain levels at worst in R small finger to a 2/10 in order to complete daily ADLs independently ~50% of the time. 4. Pt will demonstrate improved endurance by completing right hand exercises for ~10 minutes prior to rest break in order to increase her tolerance for daily work activities. 5. Pt will demonstrate independence with HEP of AAROM exercises to increase overall functional use of Right small finger in daily activities ~ 75% of the time. 6. Pt will improve right hand lamp decorator strength to 45 lbs in order to be able to open jars/ containers independently ~50% of the time. 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 Pt will increase right small finger MP flexion to 80 degrees, PIP flexion to 100 degrees, and DIP flexion to 90 degrees in order to complete daily fine motor tasks such as typing, writing, and buttoning independently ~75% of the time. 2. Pt will increase strength to 4-/5 throughout right small finger in order to improve grasp and in hand manipulation to complete heavier household tasks (laundry, mopping, vacuuming) independently ~75% of the time. 3. Pt will verbalize decreased pain levels at worst in R small finger to a 1/10 in order to complete daily ADLs independently ~75% of the time. 4. Pt will demonstrate improved endurance by completing right hand exercises for ~20 minutes prior to rest break in order to increase her tolerance for daily work activities. 5. Pt will demonstrate independence with HEP of AAROM exercises to increase overall functional use of Right small finger in daily activities ~ 95% of the time. 6. Pt will improve right hand lamp decorator strength to 55 lbs in order to be able to open jars/ containers independently ~50% of the time. Plan Plan Continue with OT plan of care at this time Frequency of Therapy 2x's a week Duration of therapy 4 weeks Time and Billing Re-Eval Time 8 Re-Eval Billing Units 1 Charge for OT reassessment? Yes PHYSICIAN CERTIFICATION: I certify the specified therapy services for Vandana Machuca are required, authorized, and reviewed every 30 days.
== END 2024-10-24 23:59 | disposition home or self-care (01) ==
LOC: OT 15:00
PROVIDERS: PCP Internal Medicine Adolescent Medicine; Visit Provider Orthopaedic Surgery
DX: Z98.890 Other specified postprocedural states (principal)
CPT/HCPCS: 97014; 97035; 97110; 97140; 97168; G0283

== ENCOUNTER 2024-10-28 08:41 | Outpatient (CLI) | payer BC, SELFPAY ==
--- NOTE | 2024-10-28 08:43 | XR_ITS ---
FINAL REPORT CLINICAL HISTORY: flaquita motley f/u COMPARISON: 09/16/2024 FINDINGS: RIGHT HAND Three views demonstrate multiple small screws in the distal fifth metacarpal. Healed fracture deformity is noted. No acute fracture or dislocation. The visualized joint spaces are normally aligned. The soft tissues are unremarkable. Interval removal of the overlying splint. IMPRESSION: Healed fracture deformity fifth metacarpal. Reviewed, Interpreted and Dictated by Heath Nava MD Transcribed by Carrie Joy Authenticated and [facility]
== END 2024-10-28 23:59 | disposition home or self-care (01) ==
LOC: RAD 08:42
PROVIDERS: PCP Internal Medicine Adolescent Medicine; Visit Provider Orthopaedic Surgery
DX: S62.336A Displaced fracture of neck of fifth metacarpal bone, right hand, initial encounter for closed fracture (principal)
CPT/HCPCS: 73130

== ENCOUNTER 2024-12-20 14:58 | Emergency (ER) | payer BC, SELFPAY ==
[2024-12-20 15:10] VITALS: BP 123/78; PULSE 99; RESP 16; TEMP 36.7; O2SAT 96; BMI 27.4
--- NOTE | 2024-12-20 15:27 | XR_ITS ---
PROCEDURE INFORMATION: Exam: XR Left Knee Exam date and time: 12/20/2024 3:32 PM Age: 34 years old Clinical indication: Injury or trauma; Fall; Blunt trauma; Lower leg; Left; Additional info: Fall, joint line tenderness TECHNIQUE: Imaging protocol: Radiologic exam of the left knee. Views: 3 views. COMPARISON: CR XR KNEE LT 3V 12/20/2024 3:32 PM FINDINGS: Bones/joints: Osseous alignment is normal. There is heterotopic ossification lateral to the lateral tibial plateau which may represent a benign exostosis or sequela of old lateral collateral ligament complex injury. No definite acute fracture. No significant degenerative/arthritic changes. Soft tissues: Moderate soft tissue swelling about the knee. Soft tissue fullness in the suprapatellar region raises suspicion for joint fluid. IMPRESSION: Suspected moderate volume joint fluid. No acute fracture.
--- NOTE | 2024-12-20 15:27 | XR_ITS ---
PROCEDURE INFORMATION: Exam: XR Left Tibia and Fibula Exam date and time: 12/20/2024 3:33 PM Age: 34 years old Clinical indication: Injury or trauma; Fall; Blunt trauma; Knee; Left; Additional info: Fall, prox tib/fib pain and knee pain TECHNIQUE: Imaging protocol: Radiologic exam of the left tibia and fibula. Views: 2 views. COMPARISON: MR ANKLE LT WO/W CON 07/08/2024 3:31 PM FINDINGS: Bones/joints: Osseous alignment is normal. No acute fracture. Heterotopic ossification lateral to the lateral tibial plateau may represent a benign exostosis or sequela of old lateral collateral ligament complex injury. Soft tissues: Unremarkable IMPRESSION: No acute abnormality
[2024-12-20 15:30] VITALS: BP 116/78; PULSE 87; O2SAT 95
[2024-12-20] MEDS: IBUPROFEN 600 MG TABLET PO (15:37)
[2024-12-20] MEDS: ACETAMINOPHEN 500MG TAB 1000 MG PO (15:41)
--- NOTE | 2024-12-20 15:56 | HMH.EDGENADL ---
Discharge Plan Disposition Patient Disposition: Home, Self-Care Chief Complaint: Extremity Injury, Lower Prescriptions Prescriptions: No Action No Known Home Medications Referrals Follow up/Referrals: Chris Polanco MD [Primary Care Provider] - See instructions Activity Restrictions/Add. Instructions Additional Instructions/Restrictions: Follow-up with Dr. Chew regarding this visit to the emergency department. Remove knee immobilizer and be sure to try to range knee and calf to prevent blood clot. If wearing at all times, 324 mg to prevent blood clot behind the knee. Call your family doctor to establish care for this visit to the emergency department and schedule follow-up within 48 hours to ensure improvement. If you have any worsening of your condition or any other concerning signs or symptoms, return to the emergency department or your primary care doctor for further evaluation. Clinical Impressions Clinical Impression: Injury of lateral collateral ligament (LCL) of knee Print Language Print Language: Azeri Discharge ED Provider: Pedro Patricia General Adult HPI General Chief complaint: Extremity Injury, Lower Stated complaint: AO 12/19/24 left knee inj Time Seen by Provider: 12/20/24 15:02 Mode of Arrival: Wheelchair Source of Information: Patient Description of Symptoms (Recalled from ER Triage Doc. by RN): pt hurt her left knee while skiing last night. states she feels like her leg is floppy and hurts from the knee down History of Present Illness HPI narrative: Please note that above description of symptoms, in this electronic medical record under categorization of recalled from ER triage doctor by RN are reflective of an initial nursing assessment, however, is not reflective of my full history and physical exam that was personally taken and clarified. Consequentially, this preceding description of symptoms, which may include the patient's categorized chief complaint in the EMR, do not reflect my personal clinical impression, and the ultimate description of history of present illness and patient stated complaints should be deferred to this section of the note. Unless stated otherwise or congruent with this section of the note, additional signs, symptoms, or incongruence should be interpreted as inaccurate with my clinical impression. Related Data Home Medications ?Medication ?Instructions ?Recorded ?Confirmed No Known Home Medications 08/05/24 10/28/24 Allergies Allergy/AdvReac Type Severity Reaction Status Date / Time No Known Allergies Allergy Verified 10/28/24 09:04 [facility] Disclaimer: The information contained in this section may have been updated after the patient was seen, as this information can be updated by other users. Medical History History of lipoma REMOVED Surgical History History of hand surgery Hx of tonsillectomy Family History Other Cancer Family history of COPD (chronic obstructive pulmonary disease) Family history of heart disease Social History Smoking Status: Never smoker alcohol intake: current alcohol intake frequency: holidays/special occasions only substance use type: denies use current occupational status: employed Travel in the last 8 weeks: None housing: house current occupation: [employer] current occupational exposures/hazards: No caffeine: No Have you lived/traveled outside [place] in past 30 days?: No Contact w/someone who lives/traveled outside [place] past 30 days?: No Exposure to someone with infectious disease in past 14 days?: No Do you have a fever (greater than 100.4 F or 38 C)?: No Have you tested positive for COVID-19: No Exposed to someone with COVID-19 in past 14 days?: No Do you have a sore throat?: No Do you have a cough?: No Do you have any weakness?: No Do you have any diarrhea?: No Are you experiencing any unusual bleeding?: No Do you have any muscle aches/pain?: No Do you have any abdominal pain?: No Are you experiencing loss of taste or smell?: No Other Medical History Have you received the Flu Vaccine for this season: No Have you received the Pneumonia Vaccine: No ROS Obtained: Yes All systems reviewed & no additional complaints except as documented Physical Exam General General appearance: alert Head Head exam: atraumatic and normocephalic Eye Eye exam: Present normal appearance, PERRL and EOMI Neck Neck exam: Present normal inspection, full ROM and trachea midline Respiratory Respiratory exam: Absent respiratory distress, wheezes, stridor, accessory muscle use or prolonged expiratory phase Cardiovascular Cardiovascular exam: Present other (Pulses equal symmetric in upper and lower extremities) Abdominal Exam Abdominal exam: Present soft; Absent distention, tenderness or pulsatile mass Extremities Exam Extremities exam: Present other Neurological Exam Neurological exam: Present alert, oriented X3 and CN II-XII intact; Absent motor sensory deficit Skin Skin exam: Present warm and dry; Absent diaphoresis or erythema Medical Decision Making Medical Records Medical records reviewed: Yes I reviewed the patient's medical records. Screening: Per USPSTF and CDC recommendations, given the prevalence of disease in our region, it is our hospital?s policy to screen for HIV and viral Hepatitis for all patients aged 18 and over and those with ongoing risk factors. Shawn Inquiry Pt receiving controlled substance: No Shawn was queried for this patient: No Vital Signs: 12/20/24 15:10 12/20/24 15:30 Temperature 98.1 F Temperature Source Oral Pulse Rate 87 Pulse Rate [Right] 99 H Respiratory Rate 16 Blood Pressure 116/78 Blood Pressure [Right Arm] 123/78 Blood Pressure Mean [Right Arm] 93 02 Sat by Pulse Oximetry 96 95 Oxygen Delivery Method Room Air Orders (Tests/Meds): ED MEDICATIONS Discontinued Medications Generic Name Dose Route Start Last Admin Trade Name Susan PRN Reason Stop Dose Admin Acetaminophen 1,000 mg 12/20/24 15:27 12/20/24 15:41 Acetaminophen 500mg Tab PO 12/20/24 15:28 1,000 mg ONCE ONE Administration Ibuprofen 600 mg 12/20/24 15:27 12/20/24 15:37 Ibuprofen 600 Mg Tablet PO 12/20/24 15:28 600 mg ONCE ONE Administration ORDERS Category Date Time Status Fibula/tibia XR left 2 views [XR tibia fibula LT 2V] Exams 12/20/24 15:27 Completed Stat Knee XR left 3 views [XR knee LT 3V] Stat Exams 12/20/24 15:27 Completed Medical Decision Narrative: This is a 34-year-old female no relevant medical history presenting with leg injury. She states that she went skiing and think she was going about 40 mph when she wiped out. Having pain near the joint space of the left knee as well as proximal tib-fib. Stable to bear weight, but having significant pain doing so. Tylenol and Motrin at home much, so came in for further evaluation. History was obtained via conversation with patient. On arrival, patient hemodynamically stable, alert, oriented x4, appropriate, GCS 15, moving all extremities spontaneously, pupils equal and reactive to light. Full physical exam performed and significant for swollen knee, tender in joint, primarily laterally. Anterior and posterior drawer negative. Significant pain with varus stress with valgus laxity. Differential includes sprain, strain, avulsion, fracture among others. Patient given Tylenol, Motrin, ice for symptomatic management. X-rays were ordered and independently interpreted. These demonstrated swelling and concern for bony abnormality in the lateral aspect of the knee consistent with LCL injury. Free body in the knee consistent with potential lateral meniscus injury. Joint effusion. On reevaluation, patient still in significant pain with any movement, knee immobilizer. Contacted orthopedics who recommended outpatient follow-up for MRI. Given patient presentation, workup, history, this most likely represents acute soft tissue injury of the left knee, likely LCL and lateral meniscus. Because patient at baseline without signs or symptoms of clinical decompensation, deemed appropriate for discharge. Results were relayed to patient who voiced understanding and were agreeable to outpatient management and follow up. I discussed my clinical impression with patient and answered all questions. At this time, the evidence for any other entities in the differential is insufficient to warrant any further testing or ED observation. This was explained as well. Advisory was given that persistent or worsening symptoms require further evaluation. I confirmed the understanding of this discussion. Electrical And Instrumentation Mechanic disclaimer Much of this encounter note is an electronic long haul truck driver spoken language to printed text. Electronic long haul truck driver of the spoken language may permit errors. Although I have reviewed the note, some errors may still exist. Critical Care Critical Care Time Critical Care Time: No
[2024-12-20 17:44] VITALS: BP 116/78; PULSE 92; RESP 16; TEMP 36.7
== END 2024-12-20 17:53 | disposition home or self-care (01) ==
PROVIDERS: Emergency Provider Emergency Medicine; PCP Internal Medicine Adolescent Medicine
DX: S89.90XA Unspecified injury of unspecified lower leg, initial encounter (principal); M25.562 Pain in left knee; W17.81XA Fall down embankment (hill), initial encounter; Y93.23 Activity, snow (alpine) (downhill) skiing, snowboarding, sledding, tobogganing and snow tubing; Y92.89 Other specified places as the place of occurrence of the external cause
CPT/HCPCS: 73562; 73590; 99283

== ENCOUNTER 2025-01-01 15:44 | Outpatient (CLI) | payer BC, SELFPAY ==
--- NOTE | 2025-01-01 16:00 | MR_ITS ---
FINAL REPORT CLINICAL HISTORY: Lt Knee Pain PT FELL X 2 WEEK SKIING SWELLING AND BRUISING TO LEFT KNEE , PT UNABLE TO BEAR WEIGHT COMPARISON: None FINDINGS: Multi planar MR imaging was performed of the left knee. The ACL fibers are not well-defined, worrisome for high-grade partial tear. The posterior cruciate ligament is intact. The quadriceps and patellar tendons are intact. There is a complex tear of the posterior horn of the lateral meniscus. The medial meniscus is intact. The medial and lateral collateral ligaments appear intact. The medial and lateral retinacula appear intact. There is bone marrow edema in the lateral tibial plateau with a vertical nondisplaced fracture of the lateral tibial plateau best seen on coronal images #15 through 18 of series 10. A large joint effusion is present. IMPRESSION: Probable high-grade partial tear of the anterior cruciate ligament. Complex tear of the posterior horn of the lateral meniscus. Bone marrow edema in the lateral tibial plateau with a vertical nondisplaced fracture as described above. A large joint effusion is present. Reviewed, Interpreted and Dictated by Heath Nava MD Transcribed by Nikole Benavides Authenticated and [facility]
== END 2025-01-01 23:59 | disposition home or self-care (01) ==
LOC: RAD 15:45
PROVIDERS: PCP Internal Medicine Adolescent Medicine; Visit Provider Physician Assistant
DX: M25.462 Effusion, left knee (principal); M25.562 Pain in left knee; S89.92XA Unspecified injury of left lower leg, initial encounter
CPT/HCPCS: 73721

== ENCOUNTER 2025-01-06 11:41 | Outpatient (RCR) | payer BC, SELFPAY | END 2025-01-06 23:59 | disposition home or self-care (01) | LOC: PT 11:41 | PROVIDERS: Visit Provider Physician Assistant | DX: S83.512A Sprain of anterior cruciate ligament of left knee, initial encounter (principal) | CPT/HCPCS: 97760 ==

== ENCOUNTER 2025-03-03 15:00 | Outpatient (RCR) | payer BC, SELFPAY ==
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
== END 2025-03-03 23:59 | disposition home or self-care (01) ==
LOC: PT 15:00
PROVIDERS: PCP Internal Medicine Adolescent Medicine; Visit Provider Physician Assistant
DX: S83.207A Unspecified tear of unspecified meniscus, current injury, left knee, initial encounter (principal); S83.512A Sprain of anterior cruciate ligament of left knee, initial encounter; V00.328A Other snow-ski accident, initial encounter
CPT/HCPCS: 97110; 97163; 97530

== ENCOUNTER 2025-03-10 14:59 | Outpatient (RCR) | payer BC, SELFPAY | END 2025-03-10 23:59 | disposition home or self-care (01) | LOC: PT 14:59 | PROVIDERS: PCP Internal Medicine Adolescent Medicine; Visit Provider Physician Assistant | DX: S83.512A Sprain of anterior cruciate ligament of left knee, initial encounter (principal); S83.207A Unspecified tear of unspecified meniscus, current injury, left knee, initial encounter | CPT/HCPCS: 97110; 97530 ==

== ENCOUNTER 2025-03-20 08:56 | Outpatient (CLI) | payer BC, SELFPAY ==
[2025-03-20 08:58] VITALS: BMI 26.9
[2025-03-20 09:50] LABS: HCG Qualitative, Serum Negative (Negative)
[2025-03-20 09:54] LABS: Chloride 105 mmol/L (98-107); Potassium 3.8 mmoL/L (3.5-5.1); Sodium 139 mmol/L (136-145)
[2025-03-20 09:56] LABS: Basophils % 0.9 % (0.1-2.0); Eosinophils # 0.1 Kmm3 (0.0-0.4); Eosinophils % 2.4 % (0.1-12.0); Hematocrit 37.4 % (37.0-47.0); Hemoglobin 11.9 g/dL (12.2-16.2); Immature Granulocytes # 0.01 10^3uL; Immature Granulocytes % 0.2 %; Lymphocytes # 1.9 K/mm3 (0.7-4.5); Lymphocytes % 40.2 % (10-50); Mean Corpuscular HGB Conc 31.8 g/dL (31.8-35.4); Mean Corpuscular Hemoglobin 28.5 pg (27.0-31.2); Mean Corpuscular Volume 89.7 fl (81-99); Mean Platelet Volume 10.2 fl (7.4-10.4); Monocytes # 0.3 K/mm3 (0.1-1.0); Monocytes % 5.9 % (1.7-9.3); Neutrophils # 2.3 K/mm3 (1.8-7.8); Neutrophils % 50.4 % (37.0-80.0); Nucleated Red Blood Cells # 0 10^3/uL; Nucleated Red Blood Cells % 0 %; Platelet Count 281 K/mm3 (142-424); Red Blood Count 4.17 M/mm3 (4.20-5.40); Red Cell Distribution Width 11.7 % (11.5-17.5); Red Cell Distribution Width-SD 38.2 fL; White Blood Count 4.6 K/mm3 (4.8-10.8)
[2025-03-20 09:57] LABS: Anion Gap 7.8 mEq/L (5-15); Blood Urea Nitrogen 15 mg/dl (7-17); Carbon Dioxide 30 mmol/L (22.0-30.0); Creatinine Clearance Estimated 138 mL/min (50-200); Estimated Glomerular Filt Rate 97 ml/min (>60); GFR (African American) 117 ML/MIN (>60); Glucose 100 mg/dl (74-100)
[2025-03-20 09:58] LABS: Calcium 9.7 mg/dl (8.4-10.2)
== END 2025-03-20 23:59 | disposition home or self-care (01) ==
LOC: PREOP 08:56
PROVIDERS: Physician Assistant; PCP Internal Medicine Adolescent Medicine; Visit Provider Orthopaedic Surgery
DX: S83.207A Unspecified tear of unspecified meniscus, current injury, left knee, initial encounter (principal); S83.512A Sprain of anterior cruciate ligament of left knee, initial encounter; S89.90XA Unspecified injury of unspecified lower leg, initial encounter
CPT/HCPCS: 80048; 84703; 85025

== ENCOUNTER 2025-03-24 07:13 | Day surgery (SDC) | payer BC, SELFPAY ==
[2025-03-20 11:52] VITALS: BMI 26.9
[2025-03-24] VITALS (12 sets, daily range): BP systolic 111–144; BP diastolic 63–99; PULSE 70–117; RESP 14–20; TEMP 36.2–36.9; O2SAT 94–100
[2025-03-24] MEDS: LACTATED RINGERS 1000ML 1,000 ML 100 ML IV (07:43)
[2025-03-24] MEDS: CEFAZOLIN SODIUM 2 GM in 0.9 % SODIUM CHLORIDE 100 ML IV (09:15)
[2025-03-24] MEDS: BUPIVACAINE 0.25% 30ML VIAL 75 MG (09:53)
[2025-03-24] MEDS: SODIUM CHLORIDE IRRIG SOLUTION 12,000 ML 25 ML IR (09:53)
[2025-03-24] MEDS: SODIUM CHLORIDE IRRIG SOLUTION 3,000 ML 25 ML IR (10:30)
--- NOTE | 2025-03-24 10:49 | P.PNANES_ITS ---
[facility] Disclaimer: The information contained in this section may have been updated after the patient was seen, as this information can be updated by other users. Medical History History of lipoma Surgical History History of back surgery History of hand surgery Hx of tonsillectomy Family History Other Cancer Family history of COPD (chronic obstructive pulmonary disease) Family history of fibromyalgia Family history of heart disease Social History Smoking Status: Never smoker alcohol intake: never substance use type: denies use current occupational status: employed Travel in the last 8 weeks?: Inside the [place] housing: house current occupation: [employer] current occupational exposures/hazards: No caffeine: No Have you lived/traveled outside US in past 30 days?: No Contact w/someone who lives/traveled outside US past 30 days?: No Exposure to someone with infectious disease in past 14 days?: No Do you have a fever (greater than 100.4 F or 38 C)?: No Have you tested positive for COVID-19?: No Exposed to someone with COVID-19 in past 14 days?: No Do you have a sore throat?: No Do you have a cough?: No Do you have any weakness?: No Do you have any diarrhea?: No Are you experiencing any unusual bleeding?: No Do you have any muscle aches/pain?: No Do you have any abdominal pain?: No Are you experiencing loss of taste or smell?: No [facility] Anesthesia Checklist Patient Identification Patient Identification: Verbal (Name & ) Structural Data Admitted From: Home Planned Operative Procedure/s: l knee arthroscopy Consent for Planned Operative Procedure(s) Verified: Yes NPO Status Verified Time NPO: 00:00 Additional verifications Anesthesia Reactions: No Hx Blood Transfusions: No Blood Transfusion Reaction: No Airway Assessment Mallampati Score:: Class II C-Spine Mobility Assessed: Yes TMJ Mobility Assessed: Yes Dentition: Good Dentition Neurological Assessment Level of Consciousness: Awake, Alert and Appropriate Anesthesia Plan Anesthesia Risk discussed: Yes Anesthesia Plan: Verified ASA Class: II Anesthesia Type: General Preoperative Comments Pre-Operative Comments: leg block exp to pt for post op pain control. Pt refuses block Dr Chew notified. Pt states if im in excruciating pain after surgery, you can block me then
[2025-03-24] MEDS: SODIUM CHLORIDE IRRIG SOLUTION 6,000 ML 25 ML IR (11:00)
--- NOTE | 2025-03-24 11:33 | EXP.OP.NOTE ---
Date of procedure: 03/24/25 Pre-op Diagnosis:: Left knee ACL tear Left knee lateral meniscus tear Post-op Diagnosis:: Left knee full-thickness avulsion tear from the femur ACL tear. Left knee lateral meniscus tear Red zone Procedure performed:: 1. Left knee arthroscopy with anterior cruciate ligament repair 2. Left knee arthroscopy with a lateral meniscus repair Surgeon:: Max Chew DO Insulating Machine Operator(s):: Louis IRIZARRY Anesthesia: GETA Estimated blood loss (mL): 0 Operative findings:: Interoperative evaluation of the ACL revealed full-thickness tearing of the ACL with some intact fibers at the footprint on the medial aspect of the lateral femoral condyle and avulsion type injury from the femur Interoperative evaluation of the lateral meniscus showed full-thickness tearing posterior horn lateral meniscus red zone Operative note:: Patient identified preoperatively. Left knee marked with yes my initials. Transported to operative suite. Placed upon operating bed. General anesthesia was administered airway secured. Left lower extremity prepped and draped within the knee russell. Once prepped and draped final operative timeout performed to identify proper patient procedure and extremity. Everyone involved in the case agreed. There is no counter indications to beginning. Did receive preoperative antibiotics. Marking pen was used to henry the bony landmarks of the knee standard portal sites and anterior medial portal site. Esmarch was used to exsanguinate extremity pneumatic tourniquet inflated to 300 mmHg. Skin knife was used to incise standard anterior lateral portal and blunt with trocar was placed in patellofemoral joint exchange with a camera. I swept directly into the medial joint line and into the intercondylar notch where the evaluation of the ACL was performed. There was a completely intact tibial attachment to the ACL with good blood supply was avulsion type injury from the femoral condyle of the ACL with some intact fibers at the footprint. Also evaluated medial meniscus was intact but the lateral meniscus had a tear of the posterior horn of the lateral meniscus in the red zone of the meniscus. Tensions then brought to the ACL the plan initially was to perform a arthroscopic assisted reconstruction with quadriceps autograft however given the amount of intact tissue that was present for the ACL repair was felt to be more appropriate and there was viable tissue to perform such repair. So debridement of the fat pad was performed mobilization of the stump was performed and it was adequate to attach anatomically to the medial aspect of the lateral femoral condyle. I used then the scorpion needle passer to pass FiberWire suture and a locking mattress configuration this was then repeated with an additional suture in a locking mattress fashion this gave good control of the proximal aspect of the ACL stump and it was mobile enough to attach to the anatomical attachment. Therefore the sled for tissue protector was selected and the drill guide for the 4 0.75 mm swivel lock was utilized and then a tap was placed followed by the swivel lock anchor which was placed to attach the detached ACL fibers back into the medial aspect lateral femoral condyle. Once this was performed the knee was taken through range of motion and stretched and had a good end feel to anterior drawer testing and Leilani testing. Attention is then brought to the lateral joint line within the lateral joint line the camera was moved in the sled was placed in the lateral portal followed by 2 Arthrex meniscal repair anchors and a horizontal mattress fashion these 2 anchors gave good repair of the lateral meniscus back into the red zone this was an amendable tear to repair. Camera is then removed the joint was drained skin closed with nylon stitches sterile dressing placed on toes thigh patient placed locked in a straight T ROM brace. She will be weightbearing with the leg completely straight in the T ROM brace on crutches. Condition: stable Disposition: PACU Complications:: None apparent
--- NOTE | 2025-03-24 11:41 | EXP.ANES.I ---
[facility] Anesthesia Record Part I Anesthesia Record I Intake, IV Amount: 2,000 Hydration: Adequate Estimated blood loss (mL): 0 Urine output (mL): 0 Blood Pressure: 115/75 SaO2: 95 Pulse Rate: 71 Airway Patency: Patent Respiratory Rate: 14 Temperature: 97.5 F Patient is:: Awake and Stable Stable to PACU at:: 11:35
[2025-03-24] MEDS: ONDANSETRON 4MG/2ML VIAL 4 MG IV (12:20)
[2025-03-24] MEDS: MEPERIDINE 25MG/ML 1ML SYRINGE 25 MG IV (12:20)
[2025-03-24] MEDS: KETOROLAC 30MG/ML VIAL 30 MG IV (12:35)
[2025-03-24] MEDS: PROMETHAZINE HCL 25MG/ML 1ML VIAL 6.25 MG IV (12:42)
--- NOTE | 2025-03-24 12:58 | SUR.PHASEI ---
1135- patient arrive to PACU post surgery. initial VSS, dressing CDI, report taken from Roly Seals RN. 1205- patient finally arousing after multiple attempt to stimulate her (sternal rub, nail bed pressure, etc). 1220- patient dry heaving, medicated per DEC. 1225- patient pain 6/10 at operative site. morphine and dilaudid pffered per DEC, patient denied due to the potential to make her drowsy. Education provided on medication and post operative pain control. Patient still denied. PAtient still dry heaving, offered phenergan per DEC, patient denied to to drowsiness affect. 1230- offered patient toradol per DEC since it doesnt make you drowsy, patient wishes to try it. patient medicated per DEC. Patient still dry heaving, offered phenergan again, patient denied. 1240- patient taken to post op with 6/10 pain in operative knee. Pain meds offered multiple time to patient, denied each time. dressing CDI, report given to Pedrito Cohen RN. Patient vomiting, now requesting phenergan. phenergan given per DEC.
--- NOTE | 2025-03-26 10:38 | P.PNANES_ITS ---
[facility] Anesthesia Record Part II Anesthesia Record Part II Discharge Time: 12:05 Destination: [facility] PACU nurse assessment reviewed?: Yes Patient Condition:: Good Anesthesia Complications:: None Swallowing reflex intact?: Yes Airway Patency: Patent Cyanosis?: No Blood Pressure: 144/78 SaO2: 96 Respiratory Rate: 20 Pulse Rate: 93 Temperature: 97.1 F Mental Status: Alert & Oriented Pain level:: 0 Nausea and/or vomitting:: None Intake, IV Amount: 1,500 Hydration: Adequate
[2025-03-26 10:41] VITALS: BP 144/78; PULSE 93; RESP 20; TEMP 36.2; O2SAT 96
== END 2025-03-24 13:27 | disposition home or self-care (01) ==
PROVIDERS: PCP Internal Medicine Adolescent Medicine; Visit Provider Orthopaedic Surgery
PROC: (CPT 29870; principal; 2025-03-24 08:45)
DX: S83.512A Sprain of anterior cruciate ligament of left knee, initial encounter (principal); S83.282A Other tear of lateral meniscus, current injury, left knee, initial encounter; X58.XXXA Exposure to other specified factors, initial encounter; Y93.89 Activity, other specified; Y92.89 Other specified places as the place of occurrence of the external cause; Y99.8 Other external cause status
CPT/HCPCS: 29882; 29888; 96374; C1713; J0665; J0690; J1100; J1171; J1885; J2003; J2175; J2250; J2405; J2550; J2704; J3010; J7120

== ENCOUNTER 2025-05-06 08:00 | Outpatient (RCR) | payer BC, SELFPAY ==
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
== END 2025-05-06 23:59 | disposition home or self-care (01) ==
LOC: PT 08:00
PROVIDERS: PCP Internal Medicine Adolescent Medicine; Visit Provider Orthopaedic Surgery
DX: S83.207A Unspecified tear of unspecified meniscus, current injury, left knee, initial encounter (principal); S83.512A Sprain of anterior cruciate ligament of left knee, initial encounter; V00.328A Other snow-ski accident, initial encounter
CPT/HCPCS: 97110; 97161; 97530

== ENCOUNTER 2025-06-03 16:00 | Outpatient (RCR) | payer BC, SELFPAY ==
--- NOTE | 2025-06-26 15:41 | HMH.RHREAS ---
Rehab Reassessment Rehab OP Re-assessment Start: 05/11/25 08:03 Freq: Status: Discharge Protocol: Document 05/13/25 08:06 SEAN (Rec: 05/13/25 08:47 PHORPAULINA [id number]) E-signed By Jamal Matson, PT Lower Extremity Functional Index Activities Today, do you or would you have any difficulty at all with: a.Any of your usual Moderate difficulty work, housework or school activities b. Your usual Extreme difficulty or unable to perform activity hobbies, recreational or sporting activities c. Getting into or A little bit of difficulty out of the bath d. Walking between No difficulty rooms e. Putting on your A little bit of difficulty shoes or socks f. Squatting Moderate difficulty g. Lifting an object No difficulty , like a bag of groceries from the floor h. Performing light No difficulty activities around your home i. Performing heavy Moderate difficulty activities around your home j. Getting into or No difficulty out of a car k. Walking 2 blocks A little bit of difficulty l. Walking a mile Quite a bit of difficulty m. Going up or down Quite a bit of difficulty 10 stairs (about 1 flight of stairs) n. Standing for 1 Moderate difficulty hour o. Sitting for 1 No difficulty hour p. Running on even Extreme difficulty or unable to perform activity ground q. Running on uneven Extreme difficulty or unable to perform activity ground r. Making sharp Extreme difficulty or unable to perform activity turns while running fast s. Hopping Extreme difficulty or unable to perform activity t. Rolling over in No difficulty bed LEFI Score Lower Extremity 43 Functional Index Score Rehab Re-assessment Subjective Subjective Pt reports she has no pain at rest and no pain with any current activity. However her activity level is limited by her post-surgical protocol, which she is following. Her main c/o is instability in the L knee due to weakness. Objective Objective Notes AROM L knee: 0-130 deg MMT L LE: HIP FLEX 4/5, HIP ABD 4/5, HIP IR 4-/5, HIP ER 4-/5, KNEE EXT 4-/5, KNEE FLEX 4+/5 Pain: 0/10 in the L knee TTP: 0/4 in the L knee Ambulation: Pt is ambulating without AD, but with T- scope knee brace and no antalgic gait pattern noted. Assessment Progress Assessment Progressing as Expected Assessment Notes Pt has shown significant progress with L knee AROM, strengthening, and pain reduction. Her functional abilities remain decreased due to L LE weakness and activity limitations per post-surgical protocols. Skilled therapy remains indicated to continue improving strength, ambulation ability, balance, and motor control throughout the L LE in order to imrpove pt QOL and return her to PLOF. Patient goals met ST out of 3 goals met LT out of 14 goals met, all others remain active for next 8 wks. Revised Goals New STG (in 4 weeks pt will): 4) Increase MMT throughout L LE to at least 4/5 5) Improve LEFS score to at least 50 Plan Plan Pt will continue treatment as per initial POC with all of the following possible interventions in order to imrprove L LE strength and functional mobility: Frequency of Therapy 2 x/wk Duration of Therapy 4 wks Therapeutic Exercise Yes Including Home Exercise Program Manual Therapy Yes Techniques Neuromuscular Re- Yes education Therapeutic Yes Activities to Return to Previous Functional/Work Level Gait Training Yes ADL/Self Care Yes Education Thermal Modalities Yes Electrical Yes Stimulation Orthotics/Bracing/ Yes Splinting Massage Yes Eval/Re-Eval Yes Time and Billing Re-Eval Time 14 Re-Eval Billing 1 Units Charge for PT Yes reassessment? PHYSICIAN CERTIFICATION: I certify the specified therapy services for Vandana Machuca are required, authorized, and reviewed every 30 days.
== END 2025-06-03 23:59 | disposition home or self-care (01) ==
LOC: PT 16:00
PROVIDERS: PCP Internal Medicine Adolescent Medicine; Visit Provider Orthopaedic Surgery
DX: S83.512A Sprain of anterior cruciate ligament of left knee, initial encounter (principal)
CPT/HCPCS: 97110; 97164; 97530

== ENCOUNTER 2025-07-07 16:00 | Outpatient (RCR) | payer BC, SELFPAY ==
--- NOTE | 2025-06-11 14:58 | HMH.RHREAS ---
Rehab Reassessment Rehab OP Re-assessment Start: 06/09/25 08:17 Freq: Status: Active Protocol: Document 06/11/25 14:49 PHORNE (Rec: 06/11/25 14:57 PHORNE [id number]) E-signed By Jamal Matson PT Lower Extremity Functional Index Activities Today, do you or would you have any difficulty at all with: a.Any of your usual No difficulty work, housework or school activities b. Your usual Moderate difficulty hobbies, recreational or sporting activities c. Getting into or No difficulty out of the bath d. Walking between No difficulty rooms e. Putting on your No difficulty shoes or socks f. Squatting A little bit of difficulty g. Lifting an object No difficulty , like a bag of groceries from the floor h. Performing light No difficulty activities around your home i. Performing heavy Moderate difficulty activities around your home j. Getting into or No difficulty out of a car k. Walking 2 blocks No difficulty l. Walking a mile No difficulty m. Going up or down A little bit of difficulty 10 stairs (about 1 flight of stairs) n. Standing for 1 No difficulty hour o. Sitting for 1 No difficulty hour p. Running on even Extreme difficulty or unable to perform activity ground q. Running on uneven Extreme difficulty or unable to perform activity ground r. Making sharp Extreme difficulty or unable to perform activity turns while running fast s. Hopping Extreme difficulty or unable to perform activity t. Rolling over in No difficulty bed LEFI Score Lower Extremity 58 Functional Index Score Rehab Re-assessment Subjective Subjective Pt reports no new issues or complaints related to her knee. Pt continues to slowly decrease wear time of her brace. No c/o pain over the past 48 hrs. She does report mild muscle soreness in the lateral distal hamstring this date, but only mild discomfort at most. Objective Objective Notes AROM L knee: 0-130 deg MMT L LE: HIP FLEX 4+/5, HIP ABD 5/5, HIP IR 4+/5, HIP ER 4+/5, KNEE EXT 5/5, KNEE FLEX 5/5 Pain: 0/10 in the L knee TTP: 0/4 in the L knee Ambulation: Pt is ambulating without AD and no knee brace currently without pain or difficulty. Assessment Progress Assessment Progressing as Expected Assessment Notes Skilled therapy remains indicated to continue improving strength, ambulation ability, balance, and motor control throughout the L LE in order to improve pt QOL and return her to PLOF. PT Patient Goals PT Short Term In 2 wks pt will: Patient Goals 1) Increase L LE MMT to 5/5 throughout. 2) Increase LEFS score to 60 or more PT Provider Relations Manager Patient In 4 wks pt will: Goals 1) Return to running without discomfort for at least 5 mins. 2) Increase LEFS to 65 or more Plan Plan Continued pt treatment may include any or all of the following interventions in order to improve functional outcomes and aid pt improvement in QOL: Frequency of Therapy 2 x/wk Duration of Therapy 4 wks Therapeutic Exercise Yes Including Home Exercise Program Manual Therapy Yes Techniques Neuromuscular Re- Yes education Therapeutic Yes Activities to Return to Previous Functional/Work Level Gait Training Yes ADL/Self Care Yes Education Thermal Modalities Yes Electrical Yes Stimulation Orthotics/Bracing/ Yes Splinting Massage Yes Eval/Re-Eval Yes Time and Billing Re-Eval Time 14 Re-Eval Billing 1 Units Charge for PT Yes reassessment? PHYSICIAN CERTIFICATION: I certify the specified therapy services for Vandana Machuca are required, authorized, and reviewed every 30 days.
== END 2025-07-07 23:59 | disposition home or self-care (01) ==
LOC: PT 16:00
PROVIDERS: PCP Internal Medicine Adolescent Medicine; Visit Provider Orthopaedic Surgery
DX: S83.512A Sprain of anterior cruciate ligament of left knee, initial encounter (principal)
CPT/HCPCS: 97110; 97164; 97530

== ENCOUNTER 2025-08-06 16:00 | Outpatient (RCR) | payer BC, SELFPAY ==
--- NOTE | 2025-07-09 16:38 | [facility]H.RHREAS ---
Rehab Reassessment Rehab OP Re-assessment Start: 07/09/25 16:09 Freq: Status: Active Protocol: Document 07/09/25 16:22 PHORNE (Rec: 07/09/25 16:37 PHORNE [id number]) E-signed By Jamal Matson, PT Lower Extremity Functional Index Activities Today, do you or would you have any difficulty at all with: a.Any of your usual A little bit of difficulty work, housework or school activities b. Your usual Quite a bit of difficulty hobbies, recreational or sporting activities c. Getting into or No difficulty out of the bath d. Walking between No difficulty rooms e. Putting on your No difficulty shoes or socks f. Squatting A little bit of difficulty g. Lifting an object No difficulty , like a bag of groceries from the floor h. Performing light No difficulty activities around your home i. Performing heavy No difficulty activities around your home j. Getting into or No difficulty out of a car k. Walking 2 blocks No difficulty l. Walking a mile No difficulty m. Going up or down A little bit of difficulty 10 stairs (about 1 flight of stairs) n. Standing for 1 No difficulty hour o. Sitting for 1 No difficulty hour p. Running on even Extreme difficulty or unable to perform activity ground q. Running on uneven Extreme difficulty or unable to perform activity ground r. Making sharp Extreme difficulty or unable to perform activity turns while running fast s. Hopping Quite a bit of difficulty t. Rolling over in No difficulty bed LEFI Score Lower Extremity 59 Functional Index Score Rehab Re-assessment Subjective Subjective Pt reports she has no pain in the L knee at rest and is now ambulating without her knee brace with no difficulty. She reports minimal discomfort with stairs. She has been cleared for jogging/running by her surgeon but continues to feel weak when she tries. Objective Objective Notes AROM L knee: 0-134 deg MMT L LE: HIP FLEX 5/5, HIP ABD 5/5, HIP IR 5/5, HIP ER 5/5, KNEE EXT 4/5, KNEE FLEX 5/5 Pain: 0/10 in the L knee at rest TTP: 0/4 in the L knee Ambulation: Pt is ambulating without AD and no knee brace currently without pain or difficulty. Assessment Progress Assessment Progressing as Expected Assessment Notes Pt has been present for 7 treatments since last RA was performed. Pt has shown increased strength throughout the L LE, but has mild quad weakness remaining. She has difficulty with jogging and is unable to return to full recreational activities at this time. Skilled therapy remains indicated in order to improve L LE strength and overall running ability to aid pt return to full participation in all preferred activities. PT Patient Goals PT Short Term In 2 wks pt will: Patient Goals 1) Increase L LE MMT to 5/5 throughout. 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 2) Increase LEFS to 65 or more Plan Plan Continued pt treatment may include any or all of the following interventions in order to improve functional outcomes and aid pt improvement in QOL. Focus on improved quad mm strengthening specifically: Frequency of Therapy 2 x/wk Duration of Therapy 4 wks Therapeutic Exercise Yes Including Home Exercise Program Manual Therapy Yes Techniques Neuromuscular Re- Yes education Therapeutic Yes Activities to Return to Previous Functional/Work Level ADL/Self Care Yes Education Electrical Yes Stimulation Eval/Re-Eval Yes Time and Billing Re-Eval Time 16 Re-Eval Billing 0 Units Charge for PT No reassessment? PHYSICIAN CERTIFICATION: I certify the specified therapy services for Vandana Machuca are required, authorized, and reviewed every 30 days.
== END 2025-08-06 23:59 | disposition home or self-care (01) ==
LOC: PT 16:00
PROVIDERS: PCP Internal Medicine Adolescent Medicine; Visit Provider Orthopaedic Surgery
DX: S83.512A Sprain of anterior cruciate ligament of left knee, initial encounter (principal)
CPT/HCPCS: 97110; 97530

== ENCOUNTER 2025-09-01 16:00 | Outpatient (RCR) | payer BC, SELFPAY ==
--- NOTE | 2025-08-10 16:31 | [facility]H.RHREAS ---
Rehab Reassessment Rehab OP Re-assessment Start: 08/10/25 16:21 Freq: Status: Active Protocol: Document 08/10/25 16:21 PHORNE (Rec: 08/10/25 16:31 PHORNE [id number]) E-signed By Jamal Matson PT Lower Extremity Functional Index Activities Today, do you or would you have any difficulty at all with: a.Any of your usual No difficulty work, housework or school activities b. Your usual Moderate difficulty hobbies, recreational or sporting activities c. Getting into or No difficulty out of the bath d. Walking between No difficulty rooms e. Putting on your No difficulty shoes or socks f. Squatting A little bit of difficulty g. Lifting an object No difficulty , like a bag of groceries from the floor h. Performing light No difficulty activities around your home i. Performing heavy No difficulty activities around your home j. Getting into or No difficulty out of a car k. Walking 2 blocks No difficulty l. Walking a mile No difficulty m. Going up or down No difficulty 10 stairs (about 1 flight of stairs) n. Standing for 1 No difficulty hour o. Sitting for 1 No difficulty hour p. Running on even Quite a bit of difficulty ground q. Running on uneven Extreme difficulty or unable to perform activity ground r. Making sharp Extreme difficulty or unable to perform activity turns while running fast s. Hopping Moderate difficulty t. Rolling over in No difficulty bed LEFI Score Lower Extremity 64 Functional Index Score Rehab Re-assessment Subjective Subjective Pt reports no c/o pain at rest, but she does continue to have pain in the medial side of her L knee with squatting. She also reports clicking when she runs. She reports she would like to be able to return to prior recreational activities including running a 9 minute mile and skiing. Objective Objective Notes AROM L knee: 0-135 deg MMT L LE: HIP FLEX 5/5, HIP ABD 5/5, HIP IR 5/5, HIP ER 5/5, KNEE EXT 4+/5, KNEE FLEX 4+/5 Pain: 0/10 in the L knee at rest, 3/10 with squatting TTP: 0/4 in the L knee Ambulation: Pt is ambulating without AD and no knee brace currently without pain or difficulty. Pt has begun light jogging activities allowable per protocol, but no sharp turns at this time. Assessment Progress Assessment Progressing as Expected Assessment Notes Pt has been present for 8 treatment sessions since her last reassessment was performed. Pt has continued to show strength improvements throughout the L LE, but has mild quad weakness remaining. She continues to have difficulty with jogging and is unable to return to full recreational activities at this time. Skilled therapy remains indicated in order to improve L LE strength and overall running ability to aid pt return to full participation in all preferred activities. PT Patient Goals PT Short Term In 2 wks pt will: Patient Goals 1) Increase L LE MMT to 5/5 throughout. 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 2) Increase LEFS to 75 or more 3) Be able to perform a full body weight squat without discomfort or instability in the L knee. Plan Plan Updated POC sent to provider for their continued input and approval. Continued pt treatment may include any or all of the following interventions in order to improve functional outcomes and aid pt improvement in QOL: Frequency of Therapy 3 x/wk Duration of Therapy 8 wks Therapeutic Exercise Yes Including Home Exercise Program Manual Therapy Yes Techniques Neuromuscular Re- Yes education Therapeutic Yes Activities to Return to Previous Functional/Work Level ADL/Self Care Yes Education Orthotics/Bracing/ Yes Splinting Eval/Re-Eval Yes Time and Billing Re-Eval Time 16 Re-Eval Billing 0 Units Charge for PT No reassessment? PHYSICIAN CERTIFICATION: I certify the specified therapy services for Vandana Rosas May are required, authorized, and reviewed every 30 days.
== END 2025-09-01 23:59 | disposition home or self-care (01) ==
LOC: PT 16:00
PROVIDERS: PCP Internal Medicine Adolescent Medicine; Visit Provider Orthopaedic Surgery
DX: S83.512A Sprain of anterior cruciate ligament of left knee, initial encounter (principal)
CPT/HCPCS: 97110; 97530

== ENCOUNTER 2025-10-06 08:00 | Outpatient (RCR) | payer BC, SELFPAY | END 2025-10-06 23:59 | disposition home or self-care (01) | LOC: PT 08:00 | PROVIDERS: PCP Internal Medicine Adolescent Medicine; Visit Provider Orthopaedic Surgery | DX: S83.512A Sprain of anterior cruciate ligament of left knee, initial encounter (principal) | CPT/HCPCS: 97110; 97112; 97530 ==